=== PATIENT | female | born 1955 | race Caucasian/White ===

== ENCOUNTER → 2016-05-25 | Outpatient (CLI) | payer OTHER ==
[~2016-05-25] MED LIST: BACTRIM DS 8001 TAB PO; CHEWABLE ASPIRI81 MG PO; CRESTOR5 MG PO; FISH OIL1000 MG PO; FLAGYL 500MG.500 MG PO; HCTZ/TRIAMTEREN1 CAP PO; KRILL OIL 1,001 EACH PO; LOSARTAN POTASS50 MG PO; METFORMIN 500M500 MG PO; NEOMYCIN 500MG500 MG PO; PAXIL PO; TABL PO; VICODIN 5/500 T1 TAB PO; ZOLOFT 50MG TAB50 MG PO
[2016-05-25 08:41] LABS: BUN 15 mg/dL (7-18); GFR (ESTIMATED) 64 ML/MIN (59-)
--- NOTE | 2016-05-25 18:03 | RADIOLOGY REPORT PS360 ---
CT ABD PELVIS W/WO CONTRAST INDICATION: Hematuria HEMATURIA COMPARISON: None TECHNIQUE: Axial images are obtained without and with contrast. Sagittal and coronal reformatted images are reviewed as well. FINDINGS: Lung base images show a 5 mm noncalcified nodule in the left lower lobe posteriorly nonspecific too small to characterize. The liver has an unremarkable appearance. Hyperdensity is present along the inferior aspect of the gallbladder suggesting a small gallstone which may be confirmed with ultrasound. . The spleen, adrenal glands, and pancreas are unremarkable. There is a 5 mm stone in the proximal right ureter causing mild right-sided hydronephrosis and proximal hydroureter. This is at the superior aspect of the L4 region. There is an additional 4 mm stone in the mid polar region of the right kidney. There are postsurgical changes of anterior abdominal wall with minimal eventration at the umbilical region. No ryland hernia evident. There has been a prior hysterectomy. There is sigmoid diverticulosis but no evidence of diverticulitis. There is degenerative disc disease at L1-L2 and L2-L3 with kyphosis at L1-L2. IMPRESSION: 1. 5 mm right proximal ureteral stone with mild obstructive uropathy. 2. Right nephrolithiasis. 3. 5 mm noncalcified nodule left lower lobe. Recommend 6 month follow-up. 4. Possible cholelithiasis IMPRESSION:
== END ==
LOC: RAD 08:25
PROVIDERS: Urology
DX: R31.9 Hematuria, unspecified (principal)
CPT/HCPCS: Q9967

== ENCOUNTER → 2017-03-08 | Outpatient (CLI) | payer OTHER ==
--- NOTE | 2017-03-13 08:14 | RADIOLOGY REPORT PS360 ---
DIG MAMM-SCREEN [facility] W/CAD CAD Screening COMPARISON: Digital mammograms 09/03/2014 and 10/08/2015 INDICATION: There is a history of breast cancer patient maternal aunt diagnosed after menopause. TECHNIQUE: Standard CC and MLO images were obtained. R2 CAD reviewed. FINDINGS: The breasts are composed primarily of fat with minimal scattered fibroglandular densities throughout each breast. There are several mole markers left breast. There is a benign-appearing calcination right breast. There is no suspicious lesion and there are no suspicious microcalcifications. IMPRESSION: Fatty type breast parenchyma no suspicious lesion seen recommend yearly follow-up BI-RADS CATEGORY: 2_Benign RECOMMENDED FOLLOWUP: 12M 12 MONTH FOLLOW-UP (A letter has been sent to the patient regarding results of the study.)
== END ==
LOC: RAD 08:30
DX: Z12.31 Encounter for screening mammogram for malignant neoplasm of breast (principal)
CPT/HCPCS: G0202